=== PATIENT | female | born 1990 | race Caucasian/White ===

== ENCOUNTER 2025-07-29 20:56 | Inpatient (IN) | payer MEDICAID ==
[~2025-07-29] VITALS: Ht 167.6 cm; Wt 75.7 kg
--- NOTE | 2025-07-29 21:15 | ELECTROCARDIOGRAPH REPORT ---
[facility] Test Date: 2025-07-29 Test Time: 21:01:34 Pat Name: DAVID HARDING Department: EMERGENCY ROOM Room: ED 20 Gender: F Signal Fitter: JANESSA : 1990 Requested By: WENDY DOYLE Order Number: [id number] Reading MD: Dr. LUCILLE Garcia Measurements Intervals Erin Rate: 76 P: 46 MI: 125 QRS: 69 QRSD: 93 T: 55 QT: 400 QTc: 450 Interpretive Statements Sinus rhythm Electronically Signed On 07-30-2025 17:34:[address] LUCILLE Garcia Please click the below link to view image of tracing.
[2025-07-29 23:17] LABS: URINE HCG NEGATIVE (NEG)
[2025-07-29 23:22] LABS: MEAN PLATELET VOLUME 10.4 FL (7.4-10.4); RED CELL DISTRIBUTION WIDTH 15.9 % (11.5-14.5)
[2025-07-29 23:27] LABS: URINE AMPHETAMINE SCREEN NEGATIVE (Neg); URINE BARBITUATE SCREEN NEGATIVE (Neg); URINE BENZODIAZEPINES SCREEN NEGATIVE (Neg); URINE CANNABINOID SCREEN NEGATIVE (Neg); URINE COCAINE SCREEN NEGATIVE (Neg); URINE METHADONE SCREEN NEGATIVE (Neg); URINE OPIATE SCREEN NEGATIVE (Neg); URINE PHENCYCLIDINE SCREEN NEGATIVE (Neg)
[2025-07-29 23:29] LABS: LEUKOCYTE ESTERASE ,URINE NEGATIVE (Neg); NITRITES, URINE NEGATIVE (Neg); OCCULT BLOOD,URINE NEGATIVE (Neg)
[2025-07-29 23:31] LABS: UA COLLECTION TYPE CLN CATCH MIDSTREAM
--- NOTE | 2025-07-29 23:31 | RADIOLOGY REPORT ---
[facility] EXAMINATION: DI RIBS,UNILAT INDICATION: Left Rib Pain Post Fall COMPARISON: None TECHNIQUE: Frontal view of the chest and 2 views of the left ribs history FINDINGS: No focal consolidation, pleural effusion or significant pneumothorax. Normal cardiomediastinal silhouette. No displaced left rib fracture. IMPRESSION: 1. No acute cardiopulmonary disease. 2. No displaced left rib fracture.
[2025-07-29 23:45] LABS: CREATININE 1.23 MG/DL (0.40-0.90); TOTAL CARBON DIOXIDE 25.8 MMOL/L (24-32); eCRCL 60 ML/MIN; eGFR 50 ML/MIN
[2025-07-29 23:49] LABS: ETHANOL < 10 MG/DL (<10)
--- NOTE | 2025-07-30 00:05 | Physician Documentation ---
History of Present Illness ~ Chief Complaint: Mental Health Eval Stated Complaint: L RIB PAIN/SI Time Seen by MD: 21:52 HPI This is a 34-year-old trans female who presents with suicidal ideation and left chest wall pain, patient reports due to recent life stressors she is having suicidal ideation with plan to utilize a razor to cut her wrists. Additionally patient reports that she fell a proximally four days ago striking her left ribcage causing pain to the area, patient reports no other acute symptoms or concerns including no other injuries. Medication Reconciliation Allergies: Coded Allergies: haloperidol (Verified Allergy, Unknown, 07/29/25) Scheduled Quetiapine Fumarate (Seroquel), 1 TAB PO HS, (Reported) Sertraline HCl (Sertraline HCl), 1 TAB PO DAILY, (Reported) Past Medical History Past Medical History: *PSYCH*, Depression Review of Systems ROS As stated above in the HPI, otherwise all systems are reviewed and negative. Physical Exam Vital Signs: Temperature: 99.0, Source: Oral, Heart Rate: 76, Respiratory Rate: 16, BP: 120/70, Pulse Oximetry: 98, Weight: 88.000 Physical Exam VITALS: Reviewed and as above. GENERAL: Alert, nontoxic appearing, no apparent distress. HEENT: PERRLA, EOMI RESPIRATORY: No increased work of breathing, no respiratory distress, speaking in full clear sentences, clear lung sounds in all [place] CHEST: Point tenderness to left lateral lower chest wall, no crepitus, no step-offs, no flail chest CV: Regular rate and rhythm no murmur BACK: No CVA tenderness, no central spinal tenderness GI: Soft, nontender, no rebound, no guarding, bowel sounds present MUSCULOSKELETAL: No deformities, range of motion intact to all limbs SKIN: Warm and dry NEURO: GCS 15 PSYCH: Normal affect, making statements of SI Progress Results/Orders Results/Orders Orders - DARLINE HUNT,Unilsonya (07/29/25 23:10) Med Rec (07/29/25 22:34) 1799.11 (07/29/25 22:34) Close Observation Level (07/29/25 22:34) Covid19 Binax Poc Result Entry (07/29/25 22:34) Regular Diet (07/30/25 Breakfast) Quetiapine Fumarate Tablet (Seroquel) (07/30/25 21:00) Sertraline Tablet (Zoloft Tablet) (07/30/25 08:00) Completed Orders - DARLINE HUNT Ribs,Unilat (07/29/25 23:10) Acetaminophen 325mg Tablet (Tylenol Tabl (07/29/25 22:35) Cbc/Diff (07/29/25 22:34) Urinalysis (07/29/25 22:34) Hcg, Ur Ql (07/29/25 22:34) Drug Screen, Urine (07/29/25 22:34) Ethanol (07/29/25 22:34) TSH (07/29/25 22:34) BMP (07/29/25 22:34) Medications Received in ER Medications (Trade) Dose Ordered Sig/Radha Route PRN Reason Start Time Stop Time Status Last Admin Dose Admin (Zoloft tablet) 25 mg DAILY PO 07/30/25 08:00 07/30/25 07:36 25 MG Vital Signs 07/29/25 07/29/25 07/30/25 07/30/25 21:01 21:30 05:58 08:12 Temp 99.0 97.7 Pulse 76 95 Resp 16 17 18 B/P (MAP) 120/70 112/68 (83) Pulse Ox 98 98 O2 Flow Rate 0 Laboratory Tests Test 07/29/25 22:58 07/29/25 22:59 07/29/25 23:45 White Blood Count 5.5 Red Blood Count 3.85 L Hemoglobin 10.6 L Hematocrit 31.6 L Mean Corpuscular Volume 82.1 Mean Corpuscular Hemoglobin 27.6 Mean Corpuscular Hemoglobin Concent 33.7 Red Cell Distribution Width 15.9 H Platelet Count 132 L Mean Platelet Volume 10.4 Neutrophils (%) (Auto) 56.0 Lymphocytes (%) (Auto) 26.4 Monocytes (%) (Auto) 13.0 H Eosinophils (%) (Auto) 4.0 Basophils (%) (Auto) 0.6 Neutrophils # (Auto) 3.1 Lymphocytes # (Auto) 1.5 Monocytes # (Auto) 0.7 Eosinophils # (Auto) 0.2 Basophils # (Auto) 0.0 CBC Comment Sodium Level 141 Potassium Level 3.5 Chloride Level 108 H Carbon Dioxide Level 25.8 Anion Gap 7 L Blood Urea Nitrogen 18 Creatinine 1.23 H Estimated GFR/1.73 m2 50 BUN/Creatinine Ratio 14.6 Glucose Level 89 Calcium Level 7.6 L Albumin 3.2 L Thyroid Stimulating Hormone (TSH) 1.22 Chemistry Comments Ethyl Alcohol Level < 10 Urine Specimen Description Cln catch midstream Urine Color Yellow Urine Clarity Clear Urine pH 6.0 Urine Specific Hutchinson 1.025 Urine Protein Negative Urine Glucose (UA) Negative Urine Ketones Trace H Urine Occult Blood Negative Urine Nitrite Negative Urine Bilirubin Negative Urine Urobilinogen 1.0 Urine Leukocyte Esterase Negative Volume Urine Centrifuged 10 ml Urine HCG, Qualitative Negative Urine Comment Urine Opiates Screen Negative Urine Methadone Screen Negative Urine Fentanyl Screen Positive H Urine Barbiturates Screen Negative Urine Phencyclidine Screen Negative Urine Amphetamines Screen Negative Urine Benzodiazepines Screen Negative Urine Cocaine Screen Negative Urine Cannabinoids Screen Negative Drug Screen Comment SARS-CoV-2 Antigen (Rapid) Negative EKG/XRAY/CT/US/VASC/MRI EKG : Additional Comment EKG at 2101 interpreted by myself as: Sinus rhythm at a rate of 76, normal axis, no ST segment elevation or depression Chest X-Ray : Additional Comments Exam: RIBS,UNILAT [facility] EXAMINATION: DI RIBS,UNILAT INDICATION: Left Rib Pain Post Fall COMPARISON: None TECHNIQUE: Frontal view of the chest and 2 views of the left ribs history FINDINGS: No focal consolidation, pleural effusion or significant pneumothorax. Normal cardiomediastinal silhouette. No displaced left rib fracture. IMPRESSION: 1. No acute cardiopulmonary disease. 2. No displaced left rib fracture. Electronically Signed by:CORY DERAS MD Date & Time: 07/29/252327 Dictated by: OCRY DERAS MD Dictation date and time: 07/29/252327 I have reviewed and agree with the radiology report. I have reviewed and interpreted the imaging as: No displaced rib fractures, no pneumothorax, no focal consolidation Medical Decision Making Additional information obtaine: N/A Findings This 34-year-old trans female presented to the emergency department due to suicidal ideation with plan to slit her wrists along with left lateral chest wall pain after a trip and fall four days prior without other injuries. Patient is otherwise well-appearing and it was reassuring chest x-ray did not demonstrate evidence of rib fractures, remainder of physical exam benign. Due to suicidal ideation with a plan patient was placed on a 1798 mental health hold due to danger to self. Patient medicated for pain. Patient is appropriate for mental health evaluation and outpatient follow up/transfer to mental health facility. Transfer orders for [facility]: At this time there is no evidence of an emergent medical condition that would preclude (admission/transfer) to a psychiatric unit via [facility] protocol for further psychiatric, as well as medical evaluation and treatment. At this time I have no reason to believe that transfer via [facility] would have serious medical compromise in the patient's health. Differential Dx:Considerations: Include: Alcohol abuse, Anxiety, Bipolar disorder, Conversion disorder, Depression, Encephaloathy, Homicidal, Panic disorder, Personality disorder, Schizophrenia, Substance abuse, Suicidal Departure Time of Disposition: 00:36 Disposition: 01 HOME / SELF CARE / HOMELESS Impression: Primary Impression: Suicidal ideation Additional Impression: Left-sided chest wall pain Condition: Stable Discharge Instructions: Suicidal Feelings: How to Help Yourself Additional Instructions: Transfer orders for [facility]: At this time there is no evidence of an emergent medical condition that would preclude (admission/transfer) to a psychiatric unit via [facility] protocol for further psychiatric, as well as medical evaluation and treatment. At this time I have no reason to believe that transfer via [facility] would have serious medical compromise in the patient's health. Please follow up with your primary care provider in the next few days. Please return to the emergency department for any new or worsening concerning symptoms. Referrals: NO PRIMARY CARE PROVIDER (PCP) Education Educated: Patient Educated regarding: diagnosis, treatment, prognosis, need for follow up Signature Scribe Signature: No scribe Attestation: The note accurately reflects work and decisions made by me.ARIA Soto 07/30/25 11:57 DARLINE HUNT Jul 30, 2025 00:05
[2025-07-30] MEDS ORDERED: QUET-1 PO (01:09)
[2025-07-30] MEDS ORDERED: SERT25TA84 PO (01:09)
[2025-07-30 23:00] VITALS: RESP 16
[2025-07-31] MEDS ORDERED: loperamide 2mg capsule PO PRN (00:05)
[2025-07-31] MEDS ORDERED: mag hydrox/Alum hydrox/simeth 30ml oral suspension PO PRN (00:05)
[2025-07-31] MEDS ORDERED: magnesium hydroxide 30ml (MOM) UD suspension PO PRN (00:05)
[2025-07-31 00:59] VITALS: BP 114/70; PULSE 111; RESP 16; TEMP 98.3; O2SAT 97
[2025-07-31 07:30] VITALS: BP 108/69; PULSE 93; RESP 16; TEMP 98.4; O2SAT 99
--- NOTE | 2025-07-31 08:52 | HISTORY AND PHYSICAL ---
History & Physical Providers to ~ History of Present Illness Reason for Admit\Complaint: Suicidal and depressed History of Present Illness Patient is a 34 year old transgender female( Transitioning from male to female) appears much older than her stated age , admitted at [facility] for evaluation of suicidal ideation and depression. Patient states she is traveling to [place], stopped taking her psych meds for ten days because she lost her medications in [place] . Denies any fever ,chills, nausea, vomiting , abdominal pain, dysuria , frequency urgency , hematuria , melena or BRBPR. Denies having any focal neurological symptoms. Allergies: Coded Allergies: haloperidol (Verified Allergy, Unknown, 07/29/25) Home Medications Home Medications Active Reported Sertraline HCl 25 Mg Tablet 1 Tab PO DAILY 30 Days Seroquel (Quetiapine Fumarate) 100 Mg Tablet 1 Tab PO HS 30 Days Past Medical History Past Medical History Depression, Past Surgical History Surgical History Comment None Family History Family History: Family history was reviewed; no changes noted. Past Social History Social History Comment Does not smoke drink or do any drugs but Utox screen is positive for fentanyl Health Maintenance Health Maintenance Patient reports she is current on her immunizations. Exam Vitals: Vital Signs Date Time Temp Pulse Resp B/P (MAP) Pulse Ox O2 Delivery O2 Flow Rate FiO2 07/31/25 00:59 98.3 111 16 114/70 (85) 97 Room Air 07/30/25 17:29 0 General: Awake alert oriented HEENT: NC, AT ,EOMI, Sclera anicteric , conjuctiva pinkish , moist oral mucosa Neck: Supple, no JVD Chest: Clear to auscultation , no wheezes crackles or rhonchi Cardiovascular: RRR, No murmur gallop or rub Abdomen: Soft non tender , no organomegaly Extremities: No C/C/E Central Nervous System: Non focal Musculoskeletal: No joint swelling or deformities Skin: No rash or ulcers Diagnostic Data Last Recorded Lab Results: 07/29/25225707/29/252257 RICHARD HARRIS MD Jul 31, 2025 08:52
--- NOTE | 2025-07-31 14:23 | HISTORY AND PHYSICAL ---
History of Present Illness Primary Medical Doctor: none Allergies: Coded Allergies: haloperidol (Verified Allergy, Unknown, 07/29/25) Past Psychiatric History Psychiatric History Admission date: 07/30/25 CC: "trying to get back regulated on my medication" HPI: Admitted on a 5150 for danger to self, SI with plan to cut their wrist endorsed intent and means, reported her current coping mechanisms are no longer working. Dx with bipolar I, and Autism spectrum. Hx of suicide attempt. Transgender- transitioning from male to female. Utox positive for fentanyl. Endorses AH- states they were in the process of traveling to [place]. Haven't had prescribed psychiatric medication for one week. Was attempting to walk from [place] to [place] and stopped in [place] due to SI. States she is feeling suicidal, anxious and depressed, upset because she is walking to [place] and she walk legally on the freeway. States her goal is to get to [facility] because she has [facility] support system in [place]. Would like to be in [place] to further her transition. Lost her medication one week ago in [place]. States they will go for up to a week with out sleep when they are manic, states the quetiapine helps stabilize sleep and mood. States most recent manic episode was 5-6 months ago, was in the midst of traveling to a different city. Will eat minimally. Will be hyperactive, mood will more anxious, endorses racing thoughts, will make poor unsafe decisions, for example will travel without food and water. States a few years ago had an experience with a voice in their head they would talk to. But denies hallucinations. States they have been depressed on and off since their mother in 2018- states depression has been intermittently worse. Overall was feeling stable on their current medication regimen. Denies current thoughts of suicide and self harm. Feels better already since restarting psychiatric medication. States overall anxiety has been "up and down". Review of Psychiatric Symptoms: Mood: depressed Suicide/self-harm: denies Sleep: 5.5 hours, reports good qualtiy of sleep since being hospitalized Appetite: adequate eating TID Energy: adequate Anxiety: high r/t milleu overall manageable Irritability: denies Homicidal/Anger: none expressed or observed Hallucinations/Paranoia: denies Trauma symptoms: denies Symptoms related to substance withdrawal: denies Psychiatric Medications Side Effects: Denies No evidence of TD, EPS AIMs: 0 Psychiatric History Age of initial treatment: age 25- parents were worried about them because they were struggling in social settings, was struggling to get a job Inpatient: 3 total in their life time, last time was in [place] 1 1/2 years ago - admitted for anxiety/panic episodes/depression/SI Historical Diagnoses (w/year): autism 2018, anxiety, ADHD, Bipolar I, schizophrenia Access to firearms: denies Hx of suicide attempts: 2 total- last time was a few years ago in [place], was walking [facility] to [facility] became very depressed and anxious- was weaving in and out of traffic on the free [address]. Other attempt she describes a twrilling a kitchen kneif on her chest for 6-7 hours was home alone thinkng about suicide Hx of self-harm: hx of cutting- last times 3-4 years ago Hx of violence: denies Legal hx: denies Historical Psychiatric Medications: Haloperidol allergy per records, quetiapine, trazodone, sertraline, hydroxyzine, Substance Use History Over the counter medications: denies Caffeine: intermittent Nicotine: denies Alcohol: socially only, denies hx of daily drinking, denies hx of alcohol withdrawl Cannabis: denies, last time was 4- 5 years Stimulants: denies Opioids: states they didn't take fentanyl willingly, doesnt know how it go in their system- Hx of IVDU: denies Other (Inhalants, Hypnotics, Hallucinogens, Rx): denies DUI: denies No known hx of IVDU No known hx of meeting criteria for a substance use disorder Social history [place], parents, [place] up [place]- mother in 2017, father lives in [place]. Has one sister in [place]- states they are not close to their family but will make contact occasionaly. Describes childhood as happy. States they have had gender dyphoria since childhood. Initally attempted to transistion at age 15. Home schooled, completed GED Family History Mental Illness: maternal side of the family anxiety, bipolar I Alcohol/other drug use: both parents hx of illicit drugs- both were in and of rehab hospital Suicide completions: denies Current Environment Living Situation: Homeless [place] Relationships: none current Current occupation: [employer], no income Income/rent/concerns about paying bills or feeding family: endorses, "I have kind of learned how to live with money for the most part" Hx: denies Spiritual: denies Hobbies/ Other interests: video games, programming Mental Status Evaluation General Appearance: Hospital scrubs, poorly groomed, malodorous Eye contact: consistent with social norms Demeanor: cooperative, pleasant Orientation: to person, place, time, situation Speech: Appropriate rate/rhythm/volume Psychomotor Activity: within normal range Abnormal Body Movements: none observed Mood: depressed Affect: Full range constricted Suicidality: denies suicidal ideation Homicidally: denies Thought content: consistent with social norms Thought process: logical, linear Thought perceptions: no perceptual disorder noted Memory: appears intact Attention: appears attentive Insight: good Judgment: good Current Medical Problems: none noted Review of symptoms Denies malaise, other flu like symptoms Denies falls, fatigue, weakness, confusion, dizziness, memory loss Denies tingling/numbness, tremor Denies SOB, chest pain, palpitations, fainting Denies nausea, diarrhea, constipation Denies chronic pain All other systems reviewed negative Medical History TBI Hx: denies Seizure Hx: denies RIDGE Hx: denies Diagnoses Bipolar I, current episode depressed Autism Spectrum disorder Gender Dysphoria Assessment Based on initial evaluation, including interview and history obtained today, patient appears to meet criteria for Bipolar I current episode depressed. Reports history congruent with Bipolar I, currently has been experiencing worsening depression and onset of SI in the past week due to psychosocial dynamics including being homeless, walking from [place] to [place] and unable to take current medication regimen. Utox positive for fetanyl but denies recent ilicit substance use including IVDU. Will discontinue sertraline as this could be precipitating mood episodes. Will increase quetiapine to support mood stability, treat depression and further manage anxiety. Will continue trazodone to help with sleep- will consider at follow ups the utility in the context of increasing quetiapine. Will continue hydroxyzine for situational anxiety. Status: 5150 for danger to self, still in the midst of stabilizing from crisis state, mood remains depressed, denies SI today on assessment Safety risk: low risk of imminent self-harm, low risk of externalized violent behaviors Plan Discontinue Sertraline 25 mg po QHS Increase Quetiapine from 100 to 150 mg po QHS Continue Trazodone 50 mg po QHS Continue Hydroxyzine 25 Q4 hours - helps with anxiety Maintenance therapy for tobacco use disorder: schedule nicotine patch, prn nicotine lozenges Continue Q15 min checks Continue Groups/Milieu Engagement Discharge Plan: unclear, homeless- he request for transport back to a major [facility] like [place] or [place] Spent approximately 60 minutes reviewing records and test results, assessing and treatment planning, completing care coordination and documenting the encounter. Discussed risks, including possible adverse effects, and benefits of treatment recommendations including no treatment. Voice recognition software may have been used to dictate this note. There may be errors due to use of such software. Reporting of serious errors is appreciated. Past Medical History Past Medical History: *PSYCH*, Depression Past Family History Patient History: Patient reports no known family medical history. Assessment/Plan Problems/Diagnosis: (1) Bipolar 1 disorder, depressed (2) Suicidal ideation CODING VISIT-PSYCHIATRY Date of Service: Jul 31, 2025 Billing Provider: SHALONDA GONZÁLES DNP Psych Common Visit Codes: [id number] DIAG EVAL W/MED SRVCS, [id number] INP/OBS CARE (Mod), [id number] INP/OBS CARE (High), [id number] INP/OBS CARE(Mod) SHALONDA GONZÁLES DNP Jul 31, 2025 14:23
[2025-07-31 19:35] VITALS: RESP 18; O2SAT 98
[2025-07-31 19:39] VITALS: BP 105/69; PULSE 89; RESP 18; TEMP 97.1; O2SAT 98
[2025-08-01 07:00] VITALS: RESP 14; O2SAT 97
[2025-08-01 08:00] VITALS: BP 111/66; PULSE 103; RESP 14; TEMP 97.3; O2SAT 97
[2025-08-01 09:08] LABS: CHOL/HDL RATIO 3.4 (0.00-4.99); LDL CHOLESTEROL 94 MG/DL (50-100)
--- NOTE | 2025-08-01 16:59 | PROGRESS NOTE ---
Progress Note Dictate Providers to CC ~ Antibiotic Ordered?: N/A (n/a) Objective Vitals Vital Signs Date Time Temp Pulse Resp B/P (MAP) Pulse Ox O2 Delivery O2 Flow Rate FiO2 08/01/25 08:00 97.3 103 14 111/66 (81) 97 Room Air 08/01/25 07:00 0.0 Lab Results: 07/29/25 2258 07/29/252257 Psychiatrist's Progress Note Date of Service: Aug 01, 2025 Time of Evaluation: 11:30 Notes Upon assessment today, patient is seen isolated, lying in bed. He reports being admitted into the psychiatric unit due to suicidal ideation with no active plan in place. He has had three previous suicide attempts in the past by means of cutting his wrist and weaving in and out of traffic. Throughout the assessment he reports his struggles with transitioning from male to female and homelessness. He reports being in [place] recently with hopes of being able to complete his transition there but was unsuccessful. Patient states his goal is to get to [place], [place] to complete transition as he feels it is safer there and less conservative. Patient endorses suicidal ideation and auditory hallucinations intermittently but not at present. During the assessment, the patient displays poor eye contact, withdrawn and guarded. His speech is slow and slurred. He reports sleeping most of the day and night. Patient is compliant with medication and denies any side effects. Patient's Status and Progress Review of systems: constitutional, psych, and neuro symptoms reviewed and negative except per HPI Eye Contact: Avoidant Motor Activity: Slowed Affect: Flat Comments Patient is alert and oriented to name and place. Patient is disheveled, poor grooming. Some slowing is noted No agitation is noted. Patient is redirectable. Patient is cooperative throughout assessment. Language is appropriate to naming and repeating. Mood is depressed, anxious. Affect is mood congruent/flat. Thought process is linear/logical. Patient endorses SI. Memory is grossly intact. Concentration is intact and maintained during conversation. Cognition is grossly intact. Intellect is average. Insight is poor Judgment is poor. Mood: Anxious, Depressed Suicidality: Ideation Homicidality: None Delusions: None Behavior: Withdrawn Insight: Poor Judgment: Poor Treatment Patient remains depressed and suicidal Diagnosis: No change in diagnosis Formulation: This is a 34-year-old male (who is transitioning to female) who presents to the hospital for suicidal ideation. Continue current treatment plan. Patient encouraged to attend groups and therapy, precautions continued, emergency procedures, treatment options, and side effects of medications reviewed Discharge Discharge to jail or temporary housing if agreeable. CODING VISIT-PSYCHIATRY Date of Service: Aug 01, 2025 Billing Provider: RANDEE DILLARD NP Psych Common Visit Codes: [id number] INP/OBS CARE(Mod) RANDEE DILLARD NP Aug 01, 2025 16:59
[2025-08-01 19:44] VITALS: BP 113/70; PULSE 94; RESP 16; TEMP 98.4; O2SAT 97
[2025-08-01 19:55] VITALS: RESP 14; O2SAT 97
[2025-08-02 07:00] VITALS: RESP 16; O2SAT 99
[2025-08-02 08:00] VITALS: BP 104/74; PULSE 103; RESP 16; TEMP 98.4; O2SAT 95
--- NOTE | 2025-08-02 12:53 | PROGRESS NOTE ---
Progress Note Dictate Providers to CC ~ Antibiotic Ordered?: N/A (N/A) Objective Vitals Vital Signs Date Time Temp Pulse Resp B/P (MAP) Pulse Ox O2 Delivery O2 Flow Rate FiO2 08/02/25 08:00 98.4 103 16 104/74 (84) 95 Room Air 08/01/25 19:55 0.0 Lab Results: 07/29/25 2258 07/29/252257 Psychiatrist's Progress Note Date of Service: Aug 02, 2025 Time of Evaluation: 11:15 Notes Upon assessment today, patient is seen lying in bed, isolated and withdrawn. Patient continues to endorse suicidal ideation without an active plan. Patient states his plan of relocating to [place], [place] is still in place. Patient states he plans on completing his transition there from male to female in [place]. Patient denies any issues overnight, sleeping around 9-10 hours last night and naps throughout the day. Appetite good and mood remains depressed and anxious. Patient's Status and Progress Review of systems: constitutional, psych, and neuro symptoms reviewed and negative except per HPI. Appearnace: Disheveled, Other (not showered since admission per patient) Speech: Other (slowed and slurred) Eye Contact: Avoidant Motor Activity: Slowed Affect: Flat, Other (mood congruent) Mood: Anxious, Depressed Comments No agitation is noted, patient is redirectable Orientation Impairment: Place, Person, Time Memory Impairment: None Attention: Distracted Hallucinations: None Suicidality: Ideation Homicidality: None Delusions: None Comments Thought process is linear/logical Behavior: Cooperative, Guarded, Withdrawn Insight: Poor Judgment: Poor Treatment Continue current medication plan and continue to monitor. Quetiapine 150mg Q HS Hydroxyzine HLC 50mg Q 6hrs PRN anxiety Trazadone HCL 50mg QHS PRN insomnia Chlorpromazine HCL 50mg Q6hrs PRN agitation Discharge Patient had spoken to older adult social work specialist and wanted to discharge today. This provider spoke with patient and is agreeable to stay until stabilized with medication adjustments. Plan is discharge to penitentiary or temporary housing next week. CODING VISIT-PSYCHIATRY Date of Service: Aug 02, 2025 Billing Provider: RANDEE DILLARD NP Psych Common Visit Codes: [id number] INP/OBS CARE(Mod) RANDEE DILLARD NP Aug 02, 2025 12:53
--- NOTE | 2025-08-02 18:32 | PROGRESS NOTE ---
Daily Progress Note Providers to CC ~ Antibiotic Timeout Antibiotic Ordered?: No Subjective Was seen in Behavioral Health unit, looked comfortable denies any concerns. Patient is trying to hydrate better , ambulating well . Objective Vital Signs Date Time Temp Pulse Resp B/P (MAP) Pulse Ox O2 Delivery O2 Flow Rate FiO2 08/02/25 08:00 98.4 103 16 104/74 (84) 95 Room Air 08/02/25 07:00 0.0 Result Diagram: 07/29/25225707/29/252257 General-patient not in any acute distress, alert awake , thin petite age- appropriate, looks comfortable HEENT-atraumatic normocephalic, neck supple without elevated JVD, no thyromegaly or carotid bruit. No lymphadenopathy bilaterally. Eyes-no icterus or pallor seen in eyes Chest-clear to auscultation bilaterally, breathing nonlabored no tachypnea, no wheezing, no crepitation, no crackles. Heart-S1-S2 normal, regular heart rate no murmur Abdomen bowel sounds positive on auscultation, soft nondistended nontender no guarding, no rigidity Neurology-grossly intact, nonfocal alert awake, cooperated during physical examination Extremity- no pedal edema able to move all 4 extremities Problem\Assessment\Plan This 34-year-old trans female admitted to mental health unit due to suicidal ideation with plan to slit her wrists along with left lateral chest wall pain after a trip and fall four days prior without other injuries. Patient's other comorbid conditions include bipolar disorder,Autism Spectrum disorder , Gender Dysphoria and h/o tobacco abuse. Signs of renal insufficiency present in patient's labs done on July 29, 2025 a.m. labs ordered. It is recommended to increase oral fluids more than 1500 mL per day for now. We will continue to follow patient from hospitalist team as needed or as per protocol Date of Service: Aug 02, 2025 Billing Provider: JEZ LOVE MD Common Visit Codes: [id number] INP/OBS CARE(LOW) JEZ LOVE MD Aug 02, 2025 18:32
[2025-08-02 19:00] VITALS: RESP 16; O2SAT 99
[2025-08-02 20:00] VITALS: BP 104/66; PULSE 88; RESP 16; TEMP 99; O2SAT 99
[2025-08-03 07:00] VITALS: RESP 14; O2SAT 96
[2025-08-03 07:42] LABS: MEAN PLATELET VOLUME 10.1 FL (7.4-10.4); RED CELL DISTRIBUTION WIDTH 15.9 % (11.5-14.5)
[2025-08-03 07:49] LABS: CREATININE 1.00 MG/DL (0.40-0.90); TOTAL CARBON DIOXIDE 26.9 MMOL/L (24-32); eCRCL 74 ML/MIN; eGFR 63 ML/MIN
[2025-08-03 08:00] VITALS: BP 97/61; PULSE 89; RESP 14; TEMP 98.1; O2SAT 96
--- NOTE | 2025-08-03 11:20 | PROGRESS NOTE ---
Progress Note Dictate Providers to CC ~ Antibiotic Ordered?: N/A (N/A) Objective Vitals Vital Signs Date Time Temp Pulse Resp B/P (MAP) Pulse Ox O2 Delivery O2 Flow Rate FiO2 08/03/25 08:00 98.1 89 14 97/61 (73) 96 Room Air 08/02/25 07:00 0.0 Lab Results: 08/03/25 0651 08/03/25 0651 Psychiatrist's Progress Note Date of Service: Aug 03, 2025 Time of Evaluation: 08:35 Notes Upon assessment today, patient is seen lying in bed, easily awakens when spoken too. Remains isolated to room and withdrawn. Patient continues to endorse suicidal ideation without an active plan. Patient reports feeling pretty good overall. Patient states adequate sleep and appetite is good. Patient states still having issues with anxiety, described as "off and on", currently not causing significant distress. Overall goal is to reach [place], but patient has expressed obstacles with hospital social worker unable to assist with travel accomodations/assistance. Denies any side effects from medication and has been compliant with treatment. Patient's Status and Progress Review of systems: constitutional, psych, and neuro symptoms reviewed and negative except per HPI Appearnace: Disheveled Speech: Other (slowed) Eye Contact: Avoidant Motor Activity: Normal Affect: Flat Comments Affect is congruent with mood Mood: Anxious, Depressed Orientation Impairment: None Memory Impairment: None Attention: Normal, Distracted Hallucinations: None Other: None Suicidality: Ideation Homicidality: None Delusions: None Behavior: Guarded, Withdrawn Insight: Poor Judgment: Poor Medication List: Current Medications Chlorpromazine HCl (Thorazine tablet) 50 mg Q6H PRN PO agitation; Start 07/31/25 at 00:05 Trazodone HCl (Desyrel tablet) 50 mg HS PRN PO Insomnia Last administered on 08/02/25at 21:13; Start 07/31/25 at 00:05 Hydroxyzine HCl (Atarax tablet) 50 mg Q6H PRN PO anxiety; Start 07/31/25 at 00:05 Quetiapine Fumarate (SEROquel tablet) 50 mg HS PO Last administered on 08/02/25at 21:14; Start 07/31/25 at 21:00 Quetiapine Fumarate (Seroquel) 100 mg HS PO Last administered on 08/02/25at 21:14; Start 07/31/25 at 21:00 Lab results: Laboratory Tests Test 08/03/25 06:51 White Blood Count 6.4 X10'3 Red Blood Count 4.49 X10'6 Hemoglobin 12.2 g/dl Hematocrit 37.4 % Mean Corpuscular Volume 83.3 FL Mean Corpuscular Hemoglobin 27.3 PG Mean Corpuscular Hemoglobin Concent 32.7 g/dL Red Cell Distribution Width 15.9 % Platelet Count 151 X10'3 Mean Platelet Volume 10.1 FL Neutrophils (%) (Auto) 52.3 % Lymphocytes (%) (Auto) 26.6 % Monocytes (%) (Auto) 15.7 % Eosinophils (%) (Auto) 4.8 % Basophils (%) (Auto) 0.6 % Neutrophils # (Auto) 3.3 X10'3 Lymphocytes # (Auto) 1.7 X10'3 Monocytes # (Auto) 1.0 X10'3 Eosinophils # (Auto) 0.3 X10'3 Basophils # (Auto) 0.0 X10'3 CBC Comment Erythrocyte Sedimentation Rate 8 MM/HR Sodium Level 142 MMOL/L Potassium Level 4.3 MMOL/L Chloride Level 109 MMOL/L Carbon Dioxide Level 26.9 MMOL/L Anion Gap 6 Blood Urea Nitrogen 17 MG/DL Creatinine 1.00 MG/DL Estimated GFR/1.73 m2 63 ML/MIN BUN/Creatinine Ratio 17.0 Glucose Level 98 MG/DL Calcium Level 8.3 MG/DL Albumin 3.2 G/DL Chemistry Comments Assessment Risk assessment: Remains High Risk due to previous attempts and current suicidal ideation. Patient denies access to weapons and does not have a plan in place. Formulation: Ms. aJckson is a 34 year old male (transitioning to female), single and currently homeless. With a history of SI and Bipolar 1 who is voluntarily admitted for SI this hospital stay. Diagnostically current presentation is consistent with the above and patient is adherent to treatment plan. Plan Continue current medication plan and increase quetiapine. Possible discharge next week to transitional housing/penitentiary. Problem List: (1) Suicidal ideation (2) Bipolar 1 disorder, depressed (3) BELLA (generalized anxiety disorder) CODING VISIT-PSYCHIATRY Date of Service: Aug 03, 2025 Billing Provider: RANDEE DILLARD NP Psych Common Visit Codes: [id number] INP/OBS CARE(Mod) RANDEE DILLARD NP Aug 03, 2025 11:19
[2025-08-03 19:00] VITALS: RESP 16; O2SAT 99
[2025-08-03 19:50] VITALS: BP 107/65; PULSE 89; RESP 16; TEMP 98.8; O2SAT 99
[2025-08-04 07:00] VITALS: RESP 15; O2SAT 96
[2025-08-04 08:00] VITALS: BP 97/64; PULSE 86; RESP 15; TEMP 98.3; O2SAT 96
--- NOTE | 2025-08-04 13:04 | PROGRESS NOTE ---
Progress Note Dictate Providers to CC ~ Antibiotic Ordered?: N/A (N/A) Objective Vitals Vital Signs Date Time Temp Pulse Resp B/P (MAP) Pulse Ox O2 Delivery O2 Flow Rate FiO2 08/04/25 08:00 98.3 86 15 97/64 (75) 96 Room Air 08/02/25 07:00 0.0 Lab Results: 08/03/25 0651 08/03/25 0651 Psychiatrist's Progress Note Date of Service: Aug 04, 2025 Time of Evaluation: 10:15 Notes Admitted on a 5150 for danger to self, SI with plan to cut their wrist endorsed intent and means, reported her current coping mechanisms are no longer working. Dx with bipolar I, and Autism spectrum. Hx of suicide attempt. Transgender- transitioning from male to female. Utox positive for fentanyl. Endorses AH- states they were in the process of traveling to [place]. Off of prescribed psychiatric medication for one week. Was attempting to walk from [place] to [place] and stopped in [place] due to SI. Patient's Status and Progress 08/04-Upon entering room patient is lying in bed, easily awakens when called. Remains withdrawn and isolated to self and room. Asking about discharge and expressing wishes to "leave soon". Explained medication changes needed and need to stabilize and patient verbalized understanding. Patient reports having a "hard time sleeping" due to noise levels on the unit. Patient describes sensitivity to noise as "nails on a chalkboard type of thing", which is notably affected by his autism per patient. Continues to endorse anxiety, but states sleep and appetite are "good". Review of symptoms: constitutional, psych, and neuro symptoms reviewed and negative except per HPI Appearnace: Disheveled, Other (wearing same clothes for several days) Speech: Other (slow, soft tone) Eye Contact: Avoidant Motor Activity: Restless, Slowed Affect: Flat (restricted) Mood: Anxious, Depressed Comments Affect congruent with mood Orientation Impairment: None Memory Impairment: None Attention: Distracted Hallucinations: None Other: None Suicidality: Ideation Homicidality: None Delusions: None Behavior: Guarded, Withdrawn Insight: Poor Judgment: Poor Assessment Risk assessment: Remains High Risk due to previous attempts and current suicidal ideation. Patient denies access to weapons and does not have a plan in place. Formulation: Ms. Jackson is a 34 year old male (transitioning to female), single and currently homeless. With a history of SI and Bipolar 1 who is voluntarily admitted for SI this hospital stay. DX: Suicidal ideation Bipolar 1 disorder, depressed type General anxiety disorder Diagnostically current presentation is consistent with the above. Continues to endorse SI without a specific plan and anxiety but is adherent to treatment plan. Plan Continue current medication plan and increase quetiapine. Possible discharge next week to transitional housing/residential. Estimated length of stay: 7-10 days Problem List: (1) Suicidal ideation (2) Bipolar 1 disorder, depressed (3) BELLA (generalized anxiety disorder) CODING VISIT-PSYCHIATRY Date of Service: Aug 04, 2025 Billing Provider: RANDEE DILLARD NP Psych Common Visit Codes: [id number] INP/OBS CARE(Mod) RANDEE DILLARD NP Aug 04, 2025 13:04
--- NOTE | 2025-08-04 18:32 | PROGRESS NOTE ---
Daily Progress Note Providers to CC ~ Antibiotic Timeout Antibiotic Ordered?: No Subjective Was seen in Behavioral Health unit, looked comfortable denies any concerns. Patient is trying to hydrate better , ambulating well . Objective Vital Signs Date Time Temp Pulse Resp B/P (MAP) Pulse Ox O2 Delivery O2 Flow Rate FiO2 08/04/25 08:00 98.3 86 15 97/64 (75) 96 Room Air 08/02/25 07:00 0.0 Result Diagram: 08/03/25 0651 08/03/25 0651 General-patient not in any acute distress, alert awake , thin petite age- appropriate, looks comfortable HEENT-atraumatic normocephalic, neck supple without elevated JVD, no thyromegaly or carotid bruit. No lymphadenopathy bilaterally. Eyes-no icterus or pallor seen in eyes Chest-clear to auscultation bilaterally, breathing nonlabored no tachypnea, no wheezing, no crepitation, no crackles. Heart-S1-S2 normal, regular heart rate no murmur Abdomen bowel sounds positive on auscultation, soft nondistended nontender no guarding, no rigidity Neurology-grossly intact, nonfocal alert awake, cooperated during physical examination Extremity- no pedal edema able to move all 4 extremities Problem\Assessment\Plan This 34-year-old trans female admitted to mental health unit due to suicidal ideation with plan to slit her wrists along with left lateral chest wall pain after a trip and fall four days prior without other injuries. Patient's other comorbid conditions include bipolar disorder,Autism Spectrum disorder , Gender Dysphoria and h/o tobacco abuse. Signs of renal insufficiency present in patient's labs done on July 29, 2025 a.m., repeat labs ordered. It is recommended to increase oral fluids more than 1500 mL per day . Renal function improved We will continue to follow patient from hospitalist team as needed or as per protocol Date of Service: Aug 04, 2025 Billing Provider: JEZ LOVE MD Common Visit Codes: [id number] INP/OBS CARE(LOW) JEZ LOVE MD Aug 04, 2025 18:32
[2025-08-04 19:00] VITALS: RESP 16; O2SAT 97
[2025-08-04 20:00] VITALS: BP 106/70; PULSE 108; RESP 16; TEMP 98.8; O2SAT 97
[2025-08-05 07:00] VITALS: RESP 14; O2SAT 96
[2025-08-05] MEDS ORDERED: QUET300T20 PO (07:55)
[2025-08-05 08:00] VITALS: BP 103/56; PULSE 100; RESP 14; TEMP 97.6; O2SAT 96
--- NOTE | 2025-08-05 12:36 | PROGRESS NOTE ---
Progress Note Dictate Providers to CC ~ Antibiotic Ordered?: N/A (NA) Objective Vitals Vital Signs Date Time Temp Pulse Resp B/P (MAP) Pulse Ox O2 Delivery O2 Flow Rate FiO2 08/05/25 08:00 97.6 100 14 103/56 (72) 96 Room Air 08/02/25 07:00 0.0 Lab Results: 08/03/25 0651 08/03/25 0651 Psychiatrist's Progress Note Date of Service: Aug 05, 2025 Time of Evaluation: 11:30 Notes Admitted on a 5150 for danger to self, SI with plan to cut their wrist endorsed intent and means, reported her current coping mechanisms are no longer working. Dx with bipolar I, and Autism spectrum. Hx of suicide attempt. Transgender- transitioning from male to female. Utox positive for fentanyl. Endorses AH- states they were in the process of traveling to [place]. Off of prescribed psychiatric medication for one week. Was attempting to walk from [place] to [place] and stopped in [place] due to SI. Patient's Status and Progress 08/05-Upon entering room patient is lying in bed, awake and looking out the window. Remains withdrawn and isolated to self and room. Patient expressed desire to leave today or tomorrow, patient feels he is "stable now and feels medication are working well". Patient reports better sleep last night despite the noise from other patients. Continues to endorse anxiety, but states is "more manageable now". Complaint with medication and denies any adverse side effects. Review of symptoms: constitutional, psych, and neuro symptoms reviewed and negative except per HPI Appearnace: Disheveled Speech: Normal Eye Contact: Avoidant Motor Activity: Slowed Affect: Flat, Other (restrictive) Mood: Depressed Orientation Impairment: None Memory Impairment: None Attention: Distracted Hallucinations: None Other: None Suicidality: None Homicidality: None Delusions: None Behavior: Guarded, Withdrawn Insight: Fair Judgment: Fair Medication List: Current Medications Quetiapine Fumarate (Seroquel) 300 mg HS PO ; Start 08/05/25 at 21:00 Chlorpromazine HCl (Thorazine tablet) 50 mg Q6H PRN PO agitation Trazodone HCl (Desyrel tablet) 50 mg HS PRN PO Insomnia Hydroxyzine HCl (Atarax tablet) 50 mg Q6H PRN PO anxiety My orders: Orders - RANDEE DILLARD NP Discharge Routine (08/05/25 ) Quetiapine Fumarate Tablet (Seroquel) (08/05/25 21:00) Assessment Risk assessment: Remains High Risk due to previous attempts and suicidal ideation. Patient denies access to weapons and does not have a plan in place. Formulation: Ms. Jackson is a 34 year old male (transitioning to female), single and currently homeless. With a history of SI and Bipolar 1 who is voluntarily admitted for SI this hospital stay. DX: Suicidal ideation Bipolar 1 disorder, depressed type General anxiety disorder Diagnostically current presentation is consistent with the above. Continues to endorse SI without a specific plan and anxiety but is adherent to treatment plan. Plan Continue current medication plan and increase quetiapine. Discharge tomorrow to prison. Estimated length of stay: 7-10 days CODING VISIT-PSYCHIATRY Date of Service: Aug 05, 2025 Billing Provider: RANDEE DILLARD NP Psych Common Visit Codes: [id number] INP/OBS CARE(Mod) RANDEE DILLARD NP Aug 05, 2025 12:36
[2025-08-05 19:00] VITALS: RESP 16; O2SAT 98
[2025-08-05 20:00] VITALS: BP 109/61; PULSE 96; RESP 16; TEMP 98.8; O2SAT 98
[2025-08-06 07:00] VITALS: RESP 14; O2SAT 98
[2025-08-06 07:43] VITALS: BP 125/75; PULSE 68; RESP 14; TEMP 98; O2SAT 98
--- NOTE | 2025-08-06 08:41 | DISCHARGE SUMMARY ---
Discharge Summary Providers to CC ~ Discharge Summary Admission Diagnosis: Suicidal ideation, Bipolar 1 disorder, depressed type Hospital Course DATE OF ADMISSION: DATE OF DISCHARGE: Discharge Diagnosis\\Comment: Stable Operations\\Procedures: None pending Consultants: None Complications: None Condition on DC: Stable 2 or more antipsychotic used: Yes 2/more antipsychotic addressed: Yes Does Patient smoke: No Smoking education given.: No Discharge Summary: Hospital Course is as follows. Pt initially came in on a 5150 for SI and MDD, recurrent with psychosis. Admission factors were reviewed during their hospi talization including endorsing SI, AVH, (patient stating voices telling him to kill himself and that hes worthless). Pt started to gradually improve, his mood gradually improved including his SI, depression and psychotic symptoms. Pts affect got better and he became much more redirectable. Pt tolerated medications well and denied side effects to medications. Pt started to engage in the milieu, socializing and engaging with staff and other patients. Pt was seen at discharge and he denied SI/HI. Was able to contract for safety. Pt is at risk for worsening symptoms and we discussed a safety plan, emergency procedures, Medications risks and SE were also discussed. Medications at discharge include: Venlafaxine XR 225mg daily Risperidone 1mg BID MSE at Discharge: Pt is alert and oriented to name, date, place. Casually dressed/neat and well groomed. No slowing or agitation noted Pt is redirectable Language is appropriate to naming and repeating Mood is calm, pleasant and optimistic. Affect is Mood congruent/ Thought process is linear/logical Pt denies SI/HI/, endorses AH but is able to "ignore them and tune out". Recent and remote memory are intact tested via recall Concentration is intact tested via conversation Cognition is grossly intact Intellect is average/below average, tested from vocabulary Insight is good and tested from medication compliance Pt is medically stable (unless transferred to hospital), ambulating well and able to do ADLs Discharge type was (routine or AMA) Strength: (family support, social support, health, cognition)? Weakness: (mental illness, poor coping skills) Disposition is for pt to return (home, long-term, half-way, rehab, etc) Follow up care: Pt is recommended to follow up with outpatient psych services at . Pt is recommended to follow up with outpatient rehab at (if has substance use diagnosis, place and date). Patient is recommended to follow up with PHP. Pt is recommended to f/u with pcp for continued medical care. Reference discharge planning note for further details. *Problems/Diagnosis: (1) Bipolar 1 disorder, depressed Status: Chronic (2) Suicidal ideation Status: Resolved (3) BELLA (generalized anxiety disorder) Status: Chronic Total Time Spent on D/C: > 30 Minutes Counseling Services Smoking & Tobacco Cessation: N/A Supervising MD Co-signing Provider: Hector Deleon CODING VISIT-PSYCHIATRY Date of Service: Aug 06, 2025 Billing Provider: RANDEE DILLARD NP Psych Common Visit Codes: [id number] DISCH DAY <30min RANDEE DILLARD NP Aug 06, 2025 08:41
[2025-08-06] MEDS ORDERED: QUET100T34 PO (12:21)
--- NOTE | 2025-08-06 13:33 | DISCHARGE SUMMARY ---
Discharge Summary Providers to CC ~ Discharge Summary Admission Diagnosis: Suicidal ideation, Bipolar 1 disorder, depressed type Hospital Course DATE OF ADMISSION: DATE OF DISCHARGE: Discharge Diagnosis\Comment: Suidical ideation-resolved Bipolar 1 disorder, depressed type -chronic Operations\Procedures: None pending Consultants: N/A Complications: None Condition on DC: Stable 2 or more antipsychotic used: Yes 2/more antipsychotic addressed: Yes Does Patient smoke: No Smoking education given.: No New Medications: Quetiapine Fumarate (Quetiapine Fumarate) 300 Mg Tablet 1 TAB PO HS for 30 Days, #30 TAB 0 Refills Quetiapine Fumarate (Quetiapine Fumarate) 100 Mg Tablet 300 MG PO HS for 14 Days, TAB Discontinued Medications: Quetiapine Fumarate (Seroquel) 100 Mg Tablet 1 TAB PO HS for 30 Days, #30 TAB 0 Refills Sertraline HCl (Sertraline HCl) 25 Mg Tablet 1 TAB PO DAILY for 30 Days, #30 TAB 0 Refills Discharge Summary: Reason for Admission: Admitted on a 5150 for danger to self, SI with plan to cut their wrist endorsed intent and means, reported her current coping mechanisms are no longer working. Dx with bipolar I, and Autism spectrum. Hx of suicide attempt. Transgender- transitioning from male to female. Utox positive for fentanyl. Endorses AH- states they were in the process of traveling to [place]. Off of prescribed psychiatric medication for one week. Was attempting to walk from [place] to [place] and stopped in [place] due to SI. Hospital Course is as follows. Patient initially came in for SI, danger to self with intent and means. Remained withdrawn and isolated to room for several days, sleeping. Admission factors were reviewed during their hospitalization including Bipolar disorder, SI and anxiety disorder. Patient has gradually improved during the last few days, coming out of his room and engaging with staff and other patients. Patient's affect improved congruent with mood; continue to engage in activities and socialize with patients. Sertraline was discontinued and quetapine was increased during this admission. Patient tolerated medications well and denied side effects to medication. Patient was seen at discharge and denied SI/HI. Was able to contract for safety. Pt is at risk for worsening symptoms and we discussed a safety plan, emergency procedures, medication risks along with compliance and SE were also discussed. MSE at Discharge: Patient is AAOX4 Dressed in warm clothing given on unit, heavy jacket, layered clothing No slowing or agitation noted Patient is directable Language is appropriate to naming and repeating Mood is upbeat, calm and cooperative Affect is congruent with mood Thought process is linear and logical Patient denies SI/HI/AVH and denies having any access to weapons Recent and remote memory are intact and tested via recall Concentration is intact tested via conversation Cognition is grossly intact Intellect is:average Insight is fair, judgement is fair as tested by med compliance and cooperation Patient is medically stable, ambulating and able to perform ADLs independently. Disposition: Discharge to custodial/mission Patient is recommended to follow up with outpatient psych services with the [facility]. *Problems/Diagnosis: (1) Bipolar 1 disorder, depressed Status: Chronic (2) Suicidal ideation Status: Resolved (3) BELLA (generalized anxiety disorder) Status: Chronic Total Time Spent on D/C: > 30 Minutes Counseling Services Smoking & Tobacco Cessation: N/A Laboratory Results Laboratory Tests 08/03/25 06:51 Urinalysis Test 07/29/25 22:59 Urine Specimen Description Cln catch midstream Urine Color Yellow (Yellow) Urine Clarity Clear (Clear) Urine pH 6.0 (4.8-8.0) Urine Specific [place] 1.025 (1.001-1.035) Urine Protein Negative mg/dl (Neg) Urine Glucose (UA) Negative mg/dl (Neg) Urine Ketones Trace mg/dl (Neg) H Urine Occult Blood Negative (Neg) Urine Nitrite Negative (Neg) Urine Bilirubin Negative (Neg) Urine Urobilinogen 1.0 E.U/dL (0.2-1.0) Urine Leukocyte Esterase Negative (Neg) Volume Urine Centrifuged 10 ml Urine HCG, Qualitative Negative (NEG) Urine Comment Microbiology Microbiology 07/30/25 MRSA Screen - Final, Complete NO METHICILLIN RESISTANT S. AUREUS IS... CODING VISIT-PSYCHIATRY Date of Service: Aug 06, 2025 Billing Provider: RANDEE DILLARD NP Psych Common Visit Codes: 06473-XXI/OBS DISCH DAY <30min RANDEE DILLARD NP Aug 06, 2025 13:03
== END 2025-08-06 14:23 | disposition home or self-care (01) | DRG 753 ==
LOC: ER 20:57 → ED HOLD 07-30 15:45 → UNDOADMIN 07-30 15:45 → ADULT MH 07-30 21:40 → ED HOLD 07-30 21:40 → ADULT MH 07-30 21:50
PROVIDERS: ADMIT Psychiatry & Neurology Psychiatry; ATTEND Psychiatry & Neurology Psychiatry
PROC: GZHZZZZ Group Psychotherapy (ICD-10-PCS; principal; 2025-08-01)
DX: F31.30 Bipolar disorder, current episode depressed, mild or moderate severity, unspecified (principal); Z59.00 Homelessness unspecified; R45.851 Suicidal ideations; F20.9 Schizophrenia, unspecified; F64.0 Transsexualism; Z20.822 Contact with and (suspected) exposure to COVID-19; F41.1 Generalized anxiety disorder; F17.200 Nicotine dependence, unspecified, uncomplicated; F84.0 Autistic disorder; F90.9 Attention-deficit hyperactivity disorder, unspecified type
CPT/HCPCS: 36415; 71100; 80048; 80061; 80305; 80320; 81003; 81025; 83036; 84443; 85025; 85651; 87081; 87811; 93005; 99285